=== PATIENT | male | born 1965 | race Caucasian/White ===

== ENCOUNTER 2016-09-04 10:15 | Day surgery (SDC) | payer OTHER ==
[~2016-09-04] VITALS: Ht 162.6 cm; Wt 82.5 kg
--- NOTE | 2016-09-04 07:12 | PCM.HPANE ---
Patient Data Surgeon Admitting Provider: Attending Provider:Chapo Cox MD Primary Care Physician:Mateus You MD Other Provider:[facility] Reason for Visit Colon Cancer Screening, Gerd Ht/WT & BMI Body Mass Index Allergies Coded Allergies: No Known Allergies (Unverified , 09/03/16) Past Anesthesia History Anesthesia History: Denies:: Abnormal Airway, Difficult Intubation MRSA MRSA: No Medications Hypertension Medication: No Home Meds Incl Beta Deyanira: No Reported Medications Omeprazole 40 Mg Capsule.dr40 Mg PO DAILY Ref 0 09/03/16 [place] 550 Mg [id number] Mg PO DAILY 09/03/16 Garlic 1 Mg Capsule1 Tab PO DAILY 09/03/16 [place]-3 Fatty Acids (Fish Oil)500 Mg Capsule.dr1,000 Mg PO DAILY 09/03/16 History History of ENT Problems?: No HEENT History: Denies:: Abnormal Airway Difficult Intubation Denture Type: None Teeth Condition: Within Normal Limits Hx of Heart Problems?: No Cardiovascular History: Denies:: AICD Abdominal Aortic Aneurism Atrial Fibrillation Cardiac Surgery Chest Pain Congestive Heart Failure Coronary Artery Disease Edema Heart Murmur Hypertension Irregular Heartbeat Pacemaker Peripheral Vascular Rheumatic Fever Thrombophlebitis Valvular Heart Disease Hx of Respiratory Problem?: No Respiratory History: Denies:: Asthma COPD Chest Surgery Cough Dyspnea Emphysema Hemoptysis Oxygen Administration Pneumonia Pulmonary Embolism Tuberculosis Use of C-PAP Machine Use of Inhalers / NEBS Hx Neurologic Problems?: No Neurological History: Denies:: Alzheimer's Disease CVA Dementia Dizziness Headaches Multiple Sclerosis Parkinson's Disease Peripheral Neuropathy Seizures TIA Hx of GI Problems?: Yes Gastrointestinal History: Positive for:: Gastroesphageal Reflux Denies:: Cirrhosis Diverticulitis Gall Bladder Disease Gastrointestinal Bleeding Heartburn Hepatitis Hiatal Hernia Liver Disease Rectal Bleeding Hx of Problems?: No HX of Peritoneal Dialysis: No Male Hx: Denies:: Prostate Problems Scrotal Mass Testicular Surgery Skin History: Denies:: History Skin Disorders? Pressure Ulcers Hx Musculoskeletal Problems?: No Musculoskeletal History: Denies:: Back Injury Degenerative Joint Fibromyalgia Joint Replacement Musculoskeletal Trauma Myasthenia Gravis Osteoarthritis Rheumatoid Arthritis Systemic Lupus Hx of Psycho/Social Problems?: No Hx Surgeries?: No Hx Any Other Health Problems?: No Hx Diabetes: No Hx Alcohol Use: No Stop/Bang Treated for Sleep Apnea?: Yes Do You Have a CPAP Machine?: Yes DULCE Risk Assessment: High Risk, =/>3 Yes DULCE Category 4 OutPt Procedure: Yes Risk Assessment Category Category 1A: Patient has history of documented sleep apnea, and HAS NOT received any narcotic, sedative or anesthesia administration during this stay. Category 1B: Patient has history of documented sleep apnea, and HAS received any narcotic , sedative or anesthesia administration during this stay Category 2: Patient has SUSPECTED Obstructive Sleep Apnea, and HAS received any narcotic , sedative or anesthesia administration during this stay. Category 3: Patient has SUSPECTED Obstructive Sleep Apnea and HAS NOT received narcotic, sedative or anesthesia administration during this stay. Category 4: Outpatient in Procedural Areas with known sleep apnea or who screen positive for High Risk via the STOP/BANG questionnaire. Exam Exam General Appearance: Alert, Oriented X3, Cooperative, No Acute Distress HEENT/AIRWAY: MP 2 Lungs: Clear to Auscultation, Normal Air Movement Heart: Exam Unremarkable, Regular Rate/Rhythm, No Murmurs/Rubs/Gallops Plan Impression Patient chart reviewed, patient interviewed and anesthestic plan with risks, benefits, and alternatives discussed, and informed consent obtained. ASA Physical Status: ASA2 Mod Systemic Disease Anesthetic Plan: MAC Bene/Risks/Altern/Consents: Yes HP Complete Prior to Induction: Yes Satya Campbell MD Sep 04, 2016 07:12
[~2016-09-04 10:15] MED LIST: GARL1CAP PO; GING550C3 PO; Lactated Ringer's 1,000 ML IV ONE; Lactated Ringer's 1,000 ML IV SCH; MetoCLOpramide 5 mg/mL 2 mL Inj IVPUSH PRN; OMEG500C PO; OMEP40CA36 PO; Ondansetron 2 mg/mL 2 mL Inj IVPUSH PRN
[2016-09-04] MEDS ORDERED: fentaNYL-PF 50 mCg/mL 2 mL Inj ONE (10:16)
[2016-09-04] MEDS ORDERED: Ketamine 10 mg/mL 20 mL Inj ONE (10:16)
[2016-09-04 10:41] VITALS: BP 121/76; PULSE 68; RESP 16; O2SAT 98
[2016-09-04 12:41] VITALS: BP 99/56; PULSE 77; RESP 16; O2SAT 94
--- NOTE | 2016-09-04 12:50 | PCM.ANEP1 ---
Post Anesthesia PACU Phase 1 Assessment Vital Signs Vital Signs Date Time Temp Pulse Resp B/P Pulse Ox O2 Delivery O2 Flow Rate FiO2 09/04/16 12:41 77 16 99/56 94 Room Air 09/04/16 10:41 68 16 121/76 98 Room Air Anesthetic Administered: MAC Level of Alertness: Awake, talking SHARMA's with Equal Strength: Yes Pain: No Nausea or Vomiting: No CV Function & Hydration Stable: Yes Airway Device: NONE Oxygen Delivery: Nasal Cannula Lungs: Clear to Auscultation, Normal Air Movement Dermatome Level: Full Sensation PACU Phase 2 Assessment Complications: No Follow up Care: No Patient Instructions Provided: Yes Satya Campbell MD Sep 04, 2016 12:50
[2016-09-04 12:51] VITALS: BP 97/66; PULSE 74; RESP 16; O2SAT 96
[2016-09-04 13:01] VITALS: BP 111/70; PULSE 67; RESP 16; O2SAT 97
--- NOTE | 2016-09-04 21:12 | ENDO ---
[address] [address] ENDOSCOPY PROCEDURE PATIENT: EDGAR BREEN : 1965 MR#: [id number] ADMIT: 09/04/2016 JOB ID: [id number] DATE OF SERVICE: 09/04/2016 PRIMARY PROVIDER: Richy Moncada MD. PROCEDURE: 1. Esophagogastroduodenoscopy with biopsy. 2. Colonoscopy with cold snare polypectomy and cold forceps polypectomy. INDICATIONS: A 51-year-old male who reports for an upper endoscopic examination in the context of chronic GERD x6 years or so. Werner's screening is thus pursued. He additionally reports for colon cancer screening. EQUIPMENT: GIF H 180 J and a PCF H 180 AL. SEDATION: Monitored anesthesia as provided by Dr. Satya Campbell. COMPLICATIONS: None identified. BOWEL PREPARATION: Fair. Adequate exam. PROCEDURE IN DETAIL: After the risks and benefits were explained, written and verbal informed consent was obtained. The patient was brought into the endoscopy suite and placed into the left lateral decubitus position. Sedation was achieved using the above-stated medications with the addition of oxygen via nasal cannula. The scope was introduced into the mouth through the bite block, and advanced to the second portion of the duodenum. The scope was slowly withdrawn to carefully examine the mucosa for any defects or lesions. Retroflexed views were accomplished in the stomach, the stomach was decompressed, the scope removed from the patient who tolerated the procedure well. The patient was then turned around. A digital rectal examination accomplished. No significant pathology appreciated. The scope was then introduced into the rectum and advanced to the cecum as identified by the appendiceal orifice and ileocecal valve. The scope was slowly withdrawn to carefully examine the mucosa for any defects or lesions. Multiple direct views were made through the dentate line for exclusion of pathology. The colon was decompressed. The scope removed from the patient who tolerated the procedure well. FINDINGS: 1. Duodenum: Just beyond the major papilla was a small perhaps 5 mm submucosal lesion. It was very soft under the forceps suggestive of lipoma. 2. Stomach: A very diminutive polyp from the distal body, proximal antrum was removed with cold forceps. Otherwise, no significant mucosal pathology appreciated throughout including retroflexed views of the LES. 3. Esophagus: The squamocolumnar junction correlated with the top of the gastric folds. The GEJ was at 39 cm from the incisors. No acute erosive changes. No strictures. No mass lesions. 4. Colon: There were five small polyps removed today. These were retrieved with a combination of cold forceps and cold snare. Two of these were the cecum and three were then scattered throughout the mid bowel. Otherwise, no pathology. ENDOSCOPIC DIAGNOSES: 1. Duodenal submucosal lesion consistent with lipoma. 2. Gastric polyp. 3. Otherwise visually unremarkable esophagogastroduodenoscopy. 4. Colon polyps. 5. Otherwise visually unremarkable colonoscopy. RECOMMENDATIONS: 1. Await histopathology. 2. Continue anti-reflux regimen. 3. Surveillance esophagogastroduodenoscopy is not anticipated unless there are any concerning histologic features from the polyp removed. 4. Repeat colonoscopy, three years, if there are more than two adenomas identified.
--- NOTE | 2016-09-06 10:40 | PATH ---
SURGICAL PATHOLOGY Attending Physician:Ish Guerrier CASE STATUS: Signed Out PATIENT NAME: EDGAR BREEN PID: [id number] : 1965 DATE COLLECTED:09/04/2016 22:11 SPECIMEN: 1: Stomach, Polyp, Biopsy 2: Colon, Biopsy CLINICAL HISTORY: 1). GASTRIC POLYPS BIOPSY 2). COLON POLYPS X5 FINAL DIAGNOSIS: 1.GASTRIC POLYP BIOPSY: FUNDIC GLAND POLYP. Negative for evidence of Helicobacter. Negative for intestinal metaplasia. Negative for dysplasia and malignancy. 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 HYPERPLASTIC POLYP INVOLVING SINGLE BIOPSY FRAGMENT. ICD10 K31.7D12.6 GROSS DESCRIPTION: The specimen is received in two formalin filled containers labeled with the patient's name. 1). The specimen is sublabeled "gastric polyps" and consists of a 0.3 x 0.3 x 0.3 CM portion of tissue which is entirely submitted in cassette 1A. 2). The specimen is sublabeled "colon polyps" and consists of 5 portions of tissue which aggregate to 0.5 x 0.5 x 0.3 CM. The specimen is entirely submitted in cassette 2A. 09/04/2016 [facility] MICRO DESCRIPTION: See diagnosis. ICD-9 CODES: CPT CODES: 1: 93553 2: 79523 Electronically Signed Out Chapo Mary MD [facility]ology [facility] [address] [facility], [place] [address] Technical component performed at [facility], [facility] [address], [address]
== END 2016-09-04 23:59 | disposition home or self-care (01) ==
LOC: END 10:15
PROVIDERS: ATTEND Internal Medicine Gastroenterology
DX: Z12.11 Encounter for screening for malignant neoplasm of colon (principal); D12.0 Benign neoplasm of cecum; D12.3 Benign neoplasm of transverse colon; K31.7 Polyp of stomach and duodenum; D17.79 Benign lipomatous neoplasm of other sites; K21.9 Gastro-esophageal reflux disease without esophagitis; G47.33 Obstructive sleep apnea (adult) (pediatric)
CPT/HCPCS: 43239; 45380; 45385; J7120